=== PATIENT | male | born 1950 | race Two or more races ===

== ENCOUNTER 2020-12-22 08:45 | Inpatient (IN) | payer OTHER ==
[~2020-12-22] VITALS: Ht 172.7 cm; Wt 90.7 kg
[2020-12-22] MEDS ORDERED: FORTAMET1000 MG PO (12:24)
[2020-12-22] MEDS ORDERED: AMLODIPINE-OLM1 EACH PO (12:24)
[2020-12-22] MEDS ORDERED: SIMVASTA PO (12:25)
[2020-12-29] MEDS ORDERED: SIMVASTATIN40 MG (07:50)
[2020-12-29] MEDS ORDERED: AMLODIPINE-BEN1 EAC2 (07:50)
[2020-12-29] MEDS ORDERED: GLIMEPIRIDE4 M1 (07:50)
[2020-12-31] MEDS ORDERED: PERCOCET 5-3251 EACH PO (08:06)
[2020-12-31] MEDS ORDERED: OMEPRAZOLE MAGN20 MG PO (08:06)
== END 2020-12-31 15:47 | disposition home or self-care (01) | DRG 331 ==
LOC: O/R 12-29 05:07 → SURG 12-29 05:07 → SURH 12-29 07:00 → EDBD 12-29 08:45 → SURG 12-29 11:10
PROVIDERS: ADMIT Surgery; ATTEND Surgery
PROC: 07BC4ZX Excision of Pelvis Lymphatic, Percutaneous Endoscopic Approach, Diagnostic (ICD-10-PCS; 2020-12-29)
PROC: 0DTF4ZZ Resection of Right Large Intestine, Percutaneous Endoscopic Approach (ICD-10-PCS; principal; 2020-12-29 07:00)
DX: D12.2 Benign neoplasm of ascending colon (principal); Z20.822 Contact with and (suspected) exposure to COVID-19